=== PATIENT | male | born 1945 | race African-American/Black ===

== ENCOUNTER 2017-08-03 11:02 | Emergency (ER) | payer MEDICARE ==
[~2017-08-03] VITALS: Ht 167.6 cm; Wt 72.7 kg
[2017-08-03 12:17] VITALS: BP 145/92
[2017-08-03] MEDS ORDERED: CEPHALEXIN MONOHYDRATE 500 MG CAPSULE PO ONE (12:30)
== END 2017-08-03 12:51 | disposition home or self-care (01) ==
LOC: EMS 11:04
DX: L03.116 Cellulitis of left lower limb (principal); I10 Essential (primary) hypertension
CPT/HCPCS: 99283

== ENCOUNTER 2024-12-10 14:44 | Emergency (ER) | payer MEDICARE, OTHER ==
[~2024-12-10] VITALS: Ht 170.2 cm; Wt 68.1 kg
[~2024-12-10 14:44] MED LIST: ASPI-1450 PO; ATOR40TA28 PO; LEVO50 PO; LISI5TAB PO; MULT-1203 PO
[2024-12-10 14:48] VITALS: TEMP 98
[2024-12-10] MEDS ORDERED: 0.9% SODIUM CHLORIDE 10 ML SYRINGE IVP ONE (14:52)
[2024-12-10] MEDS ORDERED: IOHEXOL 350 MG/ML 100 ML VIAL ONE (14:52)
[2024-12-10] MEDS ORDERED: SODIUM CHLORIDE 0.9% 100 ML ONE (14:52)
[2024-12-10 15:28] LABS: BASOPHILS % (AUTO) 0.2 % (0.0-2.0); EOSINOPHILS % (AUTO) 1.5 % (1.0-6.0); HEMATOCRIT 41.8 % (41-53); HEMOGLOBIN 13.4 g/dL (13.5-17.5); LYMPHOCYTES # (AUTO) 1.8 K/uL (1.0-4.8); LYMPHOCYTES % (AUTO) 28.1 % (22.0-44.0); MEAN CORPUSCULAR HEMOGLOBIN 28.6 pg (26.0-34.0); MEAN CORPUSCULAR HGB CONC 32.1 G/dL (31.0-37.0); MEAN CORPUSCULAR VOLUME 89 fL (80-100); MONOCYTES # (AUTO) 0.4 K/uL (0.1-1.0); MONOCYTES % (AUTO) 6.3 % (2.0-9.0); NEUTROPHILS % (AUTO) 63.9 % (40.0-70.0); PLATELET COUNT (AUTO) 222 K/uL (150-450); RED BLOOD CELL COUNT(AUTO) 4.68 MIL/uL (4.50-5.90); RED CELL DISTRIBUTION WIDTH 13.7 % (11.5-14.5); WHITE BLOOD COUNT (AUTO) 6.3 K/uL (4.5-11.0)
[2024-12-10 15:38] LABS: ANION GAP 12 mmol/L (8-16); CALCIUM, TOTAL 9.4 mg/dL (8.8-10.5); CARBON DIOXIDE 24 mmol/L (22-29); CHLORIDE 103 mmol/L (98-107); CREATININE 1.61 mg/dL (0.60-1.30); GLOMERULAR FILTR. RATE CALC 51 mL/min (>60); GLUCOSE,RANDOM 154 mg/dL (70-110); POTASSIUM 3.9 mmol/L (3.5-5.1); SODIUM SERUM 139 mmol/L (136-145); UREA NITROGEN, BLOOD 30 mg/dL (7-18)
[2024-12-10 15:40] LABS: PROTHROMBIN TIME 10.9 SEC (9.4-11.6)
[2024-12-10] MEDS: SODIUM CHLORIDE 0.9% 1,000 ML IV ONE ×2 (15:45→16:27)
[2024-12-10 15:47] LABS: ALANINE AMINOTRANSFERASE 22 U/L (12-78); ALBUMIN 3.9 g/dL (3.4-5.0); ALKALINE PHOSPHATASE 107 U/L (46-116); ASPARTATE AMINOTRANSFERASE 16 U/L (15-37); BILIRUBIN,TOTAL 0.6 mg/dL (0.1-1.0); TOTAL PROTEIN, SERUM 8.5 g/dL (6.4-8.2); TROPONIN I-HIGH SENSITIVITY 34 ng/L (<76)
[2024-12-10] MEDS ORDERED: LOSA100T59 PO (15:59)
[2024-12-10] MEDS ORDERED: LEVO75 PO (15:59)
[2024-12-10] MEDS ORDERED: METF-1211 PO (15:59)
[2024-12-10] MEDS ORDERED: TAMS0.4C94 PO (15:59)
[2024-12-10] MEDS ORDERED: BISACODYL 10 MG RECTAL RECTAL SUPPOSITORY PR PRN (16:00)
[2024-12-10] MEDS ORDERED: ACETAMINOPHEN 325 MG TABLET PO PRN (16:00)
[2024-12-10 16:06] LABS: LACTIC ACID 1.4 mmol/L (0.4-2.0)
[2024-12-10 17:55] VITALS: BP 151/89; PULSE 88; RESP 15; O2SAT 99
[2024-12-10] MEDS ORDERED: DOCUSATE SODIUM 100 MG CAPSULE PO SCH (21:00)
[2024-12-11] MEDS ORDERED: ATORVASTATIN CALCIUM 40 MG TABLET PO SCH (09:00)
[2024-12-11] MEDS ORDERED: FAMOTIDINE 20 MG TABLET PO SCH (09:00)
[2024-12-11] MEDS ORDERED: CLOPIDOGREL BISULFATE 75 MG TABLET PO SCH (09:00)
[2024-12-11] MEDS ORDERED: ASPIRIN 81 MG CHEWABLE TABLET PO SCH (09:00)
== END 2024-12-10 18:18 ==
LOC: EMS 14:49 → CANBEDREQ 17:12 → EMS 18:18
DX: I63.9 Cerebral infarction, unspecified (principal); R40.4 Transient alteration of awareness; I10 Essential (primary) hypertension; E78.00 Pure hypercholesterolemia, unspecified; Z79.82 Long term (current) use of aspirin; Z79.899 Other long term (current) drug therapy
CPT/HCPCS: 80053; 83605; 84484; 85025; 85610; 85730; 86850; 86900; 86901; 36415; 71045; 70496; 70498; 82962; 93005; 96360; 99291; 84145; 70450; Q9967; J7030; J7050; 82948